=== PATIENT | female | born 1980 | race Hispanic/Latino ===

== ENCOUNTER → 2018-02-04 13:03 | Outpatient (CLI) | payer OTHER, SELFPAY ==
--- NOTE | 2018-02-09 08:13 | PM.PFT.1 ---
Pulmonary Function Test Referral & Results Date Patient Seen: 02/04/18 Requesting provider: Olga Lidia Alanis Indication: Cough Results: The spirometry demonstrates an FVC of 3.10 L which is 92% of predicted. The FEV1 was measured at 2.67 L which is 96% of predicted. The FEV1/FVC ratio was 86 which is where her 3% of predicted. Following the administration of bronchodilator there was no appreciable change in above normal numbers. Lung volumes show an SVC of 2.97 L which is 93% of predicted. The diffusing capacity was measured at 22.61 which is 111% of predicted. The maximum voluntary ventilation was normal. Interpretation: This study demonstrates normal pulmonary function. No etiology for cough identified with this study
== END ==
PROVIDERS: Visit Provider Family Medicine
DX: R05 Cough (principal)
CPT/HCPCS: 94010; 94060; 94726; 94729